=== PATIENT | female | born 1975 | race Caucasian/White ===

== ENCOUNTER 2016-11-17 21:22 | Emergency (ER) | payer SELFPAY ==
[~2016-11-17 21:22] MED LIST: CIPRO500 M2 PO; CIPRO500 MG PO; CREAM FOR ECZEMA; CYCLOBENZAPRINE5 M1 PO; FLEXERIL10 MG PO; MACROBID 100 M100 M1 PO; MACROBID100 MG/CA2 PO; NO HOME MEDICATION XX; NO HOME MEDS; NO MEDICATIONS; NORCO 5/325 TAB1 TAB PO; PHENERGAN W/CO120 M1 PO; PYRIDIUM200 M1 PO; PYRIDIUM200 M2 PO; RITALIN10 M1 PO; SKELAXIN800 M3 PO; TRAMADOL HCL50 M2 PO; TRAMADOL HCL50 MG PO; TYLENOL500 MG PO; ULTRAM50 M1 PO; ULTRAM50 MG PO; ZITHROMAX250MG Z-PAK PO
[2016-11-18] MEDS ORDERED: HYDROCODON-ACE1 EA16 PO (00:26)
== END 2016-11-18 00:54 ==
LOC: EDMED 21:22
DX: R51 Headache (principal); R11.0 Nausea; Z90.49 Acquired absence of other specified parts of digestive tract; Z90.710 Acquired absence of both cervix and uterus; Z90.89 Acquired absence of other organs; F17.200 Nicotine dependence, unspecified, uncomplicated
CPT/HCPCS: J1200; J2270; J2765; J7030